=== PATIENT | female | born 1985 | race Caucasian/White ===

== ENCOUNTER 2018-02-19 19:05 | Emergency (ER) | payer OTHER ==
[~2018-02-19] VITALS: Ht 165.1 cm; Wt 73.5 kg
[2018-02-19] MEDS ORDERED: PRENATAL + DHA1 EAC1 (19:23)
[2018-02-19] MEDS ORDERED: FOLIC ACID1 MG (19:24)
== END 2018-02-19 20:48 | disposition home or self-care (01) ==
LOC: ER 19:05
DX: Z34.01 Encounter for supervision of normal first pregnancy, first trimester (principal); N39.0 Urinary tract infection, site not specified

== ENCOUNTER 2018-08-11 14:26 | Inpatient (IN) | payer OTHER ==
[~2018-08-11] VITALS: Ht 165.1 cm; Wt 190.0 kg
[~2018-08-11 14:26] MED LIST: FOLIC ACID1 MG; PRENATAL + DHA1 EAC1
[2018-08-29] MEDS ORDERED: PERCOCET 5-3251 EACH PO (07:52)
== END 2018-08-29 12:06 | disposition home or self-care (01) | DRG 766 ==
LOC: O/R 08-26 08:55 → OB/GYN 08-26 14:30
PROVIDERS: Specialist
PROC: 4A1HXCZ Monitoring of Products of Conception, Cardiac Rate, External Approach (ICD-10-PCS; 2018-08-26)
PROC: 10D00Z1 Extraction of Products of Conception, Low, Open Approach (ICD-10-PCS; principal; 2018-08-26 14:30)
DX: O32.2XX0 Maternal care for transverse and oblique lie, not applicable or unspecified (principal); O24.410 Gestational diabetes mellitus in pregnancy, diet controlled; Z37.0 Single live birth; Z3A.39 39 weeks gestation of pregnancy; Z22.330 Carrier of Group B streptococcus

== ENCOUNTER 2019-12-30 17:09 | Emergency (ER) | payer OTHER ==
[~2019-12-30] VITALS: Ht 165.1 cm; Wt 83.9 kg
[~2019-12-30 17:09] MED LIST changes: +PERCOCET 5-3251 EACH PO
== END 2019-12-30 21:44 | disposition home or self-care (01) ==
LOC: ER 17:09
DX: O20.8 Other hemorrhage in early pregnancy (principal); Z34.81 Encounter for supervision of other normal pregnancy, first trimester

== ENCOUNTER → 2020-03-28 | Outpatient (CLI) | payer OTHER | END | disposition home or self-care (01) | LOC: PRENATAL 13:00 | DX: O28.1 Abnormal biochemical finding on antenatal screening of mother (principal); O24.410 Gestational diabetes mellitus in pregnancy, diet controlled; O34.211 Maternal care for low transverse scar from previous cesarean delivery; O35.3XX0 Maternal care for (suspected) damage to fetus from viral disease in mother, not applicable or unspecified; Z36.89 Encounter for other specified antenatal screening ==

== ENCOUNTER 2020-08-02 12:07 | Inpatient (IN) | payer OTHER ==
[~2020-08-02] VITALS: Ht 165.1 cm; Wt 3.2 kg
[2020-08-09] MEDS ORDERED: CINNAMON500 MG (08:59)
[2020-08-12] MEDS ORDERED: PERCOCET 5-3251 EACH PO (07:38)
[2020-08-12] MEDS ORDERED: FEOSOL325 MG PO (07:38)
== END 2020-08-12 13:59 | DRG 785 ==
LOC: O/R 08-09 05:45 → OB/GYN 08-09 05:45
PROVIDERS: ADMIT Specialist; ATTEND Specialist
PROC: 0UB70ZZ Excision of Bilateral Fallopian Tubes, Open Approach (ICD-10-PCS; 2020-08-09)
PROC: 4A1HXCZ Monitoring of Products of Conception, Cardiac Rate, External Approach (ICD-10-PCS; 2020-08-09)
PROC: 10D00Z1 Extraction of Products of Conception, Low, Open Approach (ICD-10-PCS; principal; 2020-08-09 07:00)
DX: O82 Encounter for cesarean delivery without indication (principal); O34.211 Maternal care for low transverse scar from previous cesarean delivery; O24.414 Gestational diabetes mellitus in pregnancy, insulin controlled; Z3A.38 38 weeks gestation of pregnancy; Z37.0 Single live birth; Z30.2 Encounter for sterilization